=== PATIENT | female | born 1930 | race Caucasian/White ===

== ENCOUNTER → 2017-02-17 | Outpatient (CLI) | payer MEDICARE, OTHER ==
--- NOTE | 2017-02-17 17:51 | RADRPT ---
PROCEDURE: XR Right hip and pelvis. CLINICAL INDICATION: Right hip pain and pelvic pain. TECHNIQUE: 3 views. Frontal pelvis. Frontal and lateral right hip. COMPARISON: None. FINDINGS: There is no fracture or dislocation. The soft tissues are normal. There are degenerative changes of the right hip with joint space narrowing, osteophytes, subarticula r sclerosis, and deformity. There is no lytic or blastic lesion. There are degenerative changes of the lower lumbar spine. IMPRESSION: 1. Severe degenerative changes of the right hip. 2. Degenerative changes of the lower lumbar spine. 3. Otherwise unremarkable frontal view of the pelvis. RPTAT: QQ .Rinku Mai MD, MD Date Time Electronically viewed and signed by .Rinku Mai MD, MD on 02/17/2017 17:51 .R/
== END | disposition home or self-care (01) ==
LOC: HKI 14:16
PROVIDERS: ATTEND Orthopaedic Surgery
DX: M16.11 Unilateral primary osteoarthritis, right hip (principal); M25.551 Pain in right hip
CPT/HCPCS: 73502; G0463